=== PATIENT | male | born 1985 | race Caucasian/White ===

== ENCOUNTER 2016-07-02 18:13 | Emergency (ER) | payer MEDICAID, OTHER ==
[2016-07-02 18:34] VITALS: TEMP 97.9; BMI 27.3
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
[2016-07-02] MEDS ORDERED: MORPHINE 4 MG/ML INJECTION IM ONE (19:47)
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
[2016-07-02 20:36] VITALS: BP 134/78; PULSE 80
== END 2016-07-02 20:35 ==
LOC: ED 18:13 → EEVIPCON 18:13 → ED 20:35
DX: S02.40EA Zygomatic fracture, right side, initial encounter for closed fracture (principal); S02.31XA Fracture of orbital floor, right side, initial encounter for closed fracture; S02.40CA Maxillary fracture, right side, initial encounter for closed fracture; Y09 Assault by unspecified means; F17.200 Nicotine dependence, unspecified, uncomplicated
CPT/HCPCS: 70486; 96372; 99283; J2270